=== PATIENT | female | born 1975 | race American Indian/Alaskan Native ===

== ENCOUNTER 2020-05-12 04:55 | Emergency (ER) | payer BC ==
[2020-05-12 05:13] VITALS: BP 128/84
[2020-05-12] MEDS ORDERED: CYCLOBENZAPRINE 10 MG TAB PO ONE (06:26)
[2020-05-12] MEDS ORDERED: KETOROLAC 60 MG/2 ML INJ IM ONE (06:26)
--- NOTE | 2020-05-12 07:33 | Emergency Department Report ---
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 reports no saddle paresthesia no loss of bowel or bladder no no direct trauma no urinary symptoms MD Complaint: back pain -: Gradual Similar Symptoms Previously: No Place: home Radiation: none Severity: mild Quality: dull, aching Consistency: constant Improves With: none Worsens With: none Associated Symptoms: denies: chest pain, numbness, difficulty walking, cough, difficulty urinating, incontinence, fever/chills, constipation, headaches, abdominal pain, loss of appetite, nausea/vomiting, rash, seizure, shortness of breath, syncope - Related Data Previous Rx's Medication Instructions Recorded Last Taken Type Ketorolac [Toradol] 10 mg PO Q6H PRN #20 tablet 05/12/20 Unknown Rx methOCARBAMOL [Robaxin TAB] 500 mg PO Q6H #30 tablet 05/12/20 Unknown Rx Allergies Allergy/AdvReac Type Severity Reaction Status Date / Time codeine Allergy Hives Verified 05/12/20 05:01 ED Review of Systems ROS: Stated complaint: BACK PAIN Other details as noted in HPI Comment: All other systems reviewed and negative ED Past Medical Hx - Past Medical History Previous Medical History?: No - Surgical History Past Surgical History?: No - Medications Home Medications: Home Medications Medication Instructions Recorded Confirmed Last Taken Type Ketorolac [Toradol] 10 mg PO Q6H PRN #20 tablet 05/12/20 Unknown Rx methOCARBAMOL [Robaxin TAB] 500 mg PO Q6H #30 tablet 05/12/20 Unknown Rx ED Physical Exam - General Limitations: No Limitations General appearance: alert, in no apparent distress - Head Head exam: Present: atraumatic, normocephalic - Eye Eye exam: Present: normal appearance - ENT ENT exam: Present: mucous membranes moist - Neck Neck exam: Present: normal inspection - Respiratory Respiratory exam: Present: normal lung sounds bilaterally. Absent: respiratory distress - Cardiovascular Cardiovascular Exam: Present: regular rate, normal rhythm. Absent: systolic murmur, diastolic murmur, rubs, gallop - GI/Abdominal GI/Abdominal exam: Present: soft, normal bowel sounds - Extremities Exam Extremities exam: Present: normal inspection - Back Exam Back exam: Present: normal inspection, tenderness, muscle spasm. Absent: CVA tenderness (R), CVA tenderness (L), paraspinal tenderness, vertebral tenderness - Neurological Exam Neurological exam: Present: alert, oriented X3, CN II-XII intact, normal gait - Psychiatric Psychiatric exam: Present: normal affect, normal mood. Absent: flat affect, manic, homicidal ideation - Skin Skin exam: Present: warm, dry, intact, normal color. Absent: rash, cyanosis, diaphoretic, petechiae, pallor, abrasion ED Course Vital Signs 05/12/20 05/12/20 05:06 06:37 Temperature 97.7 F Pulse Rate 55 L Respiratory 18 18 Rate Blood Pressure 128/84 O2 Sat by Pulse 100 Oximetry ED Medical Decision Making - Medical Decision Making Pt presents the emergency department complaining of back pain most consistent with back spasms lumbar and lumbago back Pain Most Consistent with Strain/Contusion. Differential Diagnosis Includes Lumbar Go Versus Mus culoskeletal Spasm, Strain Versus Sciatica. No Back Pain Red Flags on History or Physical. Presentation Not Consistent with Malignancy, Fracture, Cauda Equina, Abdominal Aortic Aneurysm, Viscus Perforation, Pulmonary Embolism, Renal Colic, Pyelonephritis. Patient reports no B symptoms, trauma trauma, incontinence, saddle anesthesia, distal weakness, urinary symptoms and is a febrile. Ms. Cunningham was treated with a Toradol shot with Flexeril and reports near complete resolution of her back pain Critical care attestation.: If time is entered above; I have spent that time in minutes in the direct care of this critically ill patient, excluding procedure time. ED Disposition Clinical Impression: Lumbago Disposition: - TO HOME OR SELFCARE Is pt being admited?: No Does the pt Need Aspirin: No Condition: Stable Instructions: Acute Back Pain, Adult Prescriptions: methOCARBAMOL [Robaxin TAB] 500 mg PO Q6H #30 tablet Ketorolac [Toradol] 10 mg PO Q6H PRN #20 tablet PRN Reason: Pain Referrals: [facility] [Provider Group] - 3-5 Days PRIMARY CARE, [Primary Care Provider] - 3-5 Days
== END 2020-05-12 07:27 | disposition home or self-care (01) ==
LOC: ED 04:55
DX: M54.5 Low back pain (principal); Z79.899 Other long term (current) drug therapy; Z88.8 Allergy status to other drugs, medicaments and biological substances
CPT/HCPCS: 96372; 99282; J1885

== ENCOUNTER 2020-07-29 17:48 | Emergency (ER) | payer BC ==
[2020-07-29 18:57] VITALS: BP 133/93
--- NOTE | 2020-07-29 19:04 | Emergency Department Report ---
ED General Adult HPI - General Chief complaint: Sore Throat Stated complaint: SORE THROAT/CHILLS Time Seen by Provider: 07/29/20 18:54 Source: patient Mode of arrival: Ambulatory Limitations: No Limitations - History of Present Illness Initial comments: 45 y/o female pt presents to ED w/ complaints of sore throat for two days. No known sick contacts. No steroid/antibiotic use. No recent travel. Denies fever, headache, cough, vomiting, neck stiffness, rash, congestion, shortness of breath. Denies all other complaints at this time. - Related Data Previous Rx's Medication Instructions Recorded Last Taken Type Ketorolac [Toradol] 10 mg PO Q6H PRN #20 tablet 05/12/20 Unknown Rx methOCARBAMOL [Robaxin TAB] 500 mg PO Q6H #30 tablet 05/12/20 Unknown Rx Nystas/Diphen/Xyl Visc/Mylanta 30 ml MM Q4H PRN #1 bottle 07/29/20 Unknown Rx [Magic Mouthwash] Penicillin Vk [Veetids TAB] 500 mg PO BID 10 Days tablet 07/29/20 Unknown Rx Allergies Allergy/AdvReac Type Severity Reaction Status Date / Time codeine Allergy Hives Verified 05/12/20 05:01 ED Review of Systems ROS: Stated complaint: SORE THROAT/CHILLS Other details as noted in HPI Other: GENERAL: Negative for fever. ENT: Positive for sore throat. CARDIOVASCULAR: Negative for chest pain. PULMONARY: Negative for shortness of breath. GASTROINTESTINAL: Negative for abdominal pain. MUSCULOSKELETAL: Negative for back pain. NEUROLOGICAL: Negative for headache. INTEGUMENTARY: Negative for rash. ED Past Medical Hx - Past Medical History Previous Medical History?: No - Surgical History Past Surgical History?: Yes Additional Surgical History: Tubaligation - Social History Smoking Status: Never Smoker Substance Use Type: Alcohol - Medications Home Medications: Home Medications Medication Instructions Recorded Confirmed Last Taken Type Ketorolac [Toradol] 10 mg PO Q6H PRN #20 tablet 05/12/20 Unknown Rx methOCARBAMOL [Robaxin TAB] 500 mg PO Q6H #30 tablet 05/12/20 Unknown Rx Nystas/Diphen/Xyl Visc/Mylanta 30 ml MM Q4H PRN #1 bottle 07/29/20 Unknown Rx [Magic Mouthwash] Penicillin Vk [Veetids TAB] 500 mg PO BID 10 Days tablet 07/29/20 Unknown Rx ED Physical Exam - General Limitations: No Limitations - Other Other exam information: General: Awake, appropriately interactive, no acute distress. ENT: There is pharyngeal erythema with exudate noted to the right tonsil. Uvula is midline and nonedematous. No trismus. No hoarseness. No trismus. Handling secretions without difficulty. Normal otoscopic exam. Neck: Supple. Full range of motion intact. Cardiovascular: Regular rate and rhythm. Normal peripheral perfusion. Pulmonary: Clear to auscultation bilaterally. No respiratory distress. Patient is speaking normally without use of accessory muscles. Skin: No apparent rashes or lesions. Neurological: No facial asymmetry. Speech is clear. Follows commands. Patient is alert and oriented. Musculoskeletal: Moves all four extremities spontaneously with normal range of motion. Psych: Cooperative. Appropriate mood and affect. ED Course Vital Signs 07/29/20 18:55 Temperature 99.9 F H Pulse Rate 83 Respiratory 20 Rate Blood Pressure 133/93 O2 Sat by Pulse 98 Oximetry ED Medical Decision Making - Medical Decision Making Differential diagnosis including but not limited to: strep pharyngitis, viral pharyngitis, peritonsillar abscess, epiglottitis, Edgar's angina, mononucleosis, allergic rhinitis, otitis media On re-evaluation, patient remains stable. Strep test is positive. No clinical evidence to suggest airway obstruction or systemic illness. Patient will be treated with Penicillin and Magic Mouthwash for symptomatic relief. Patient instructed to follow-up with primary care provider within the week. Patient expressed understanding and is agreeable to plan of care. Disease transmission precautions discussed. Strict return precautions provided. Repeat exam is unremarkable and benign. History, exam, diagnostic testing, and current condition do not suggest worrisome pathology to warrant further testing, continued ED treatment, admission, or surgical evaluation at this point. Given the low probability of a significant medical illness, it would be more likely to result in harm than benefit to perform further testing at this stage. Discussed findings, presumptive diagnosis, need for follow-up and specific signs/symptoms that should prompt immediate return to the emergency department. Instructions were explained in detail to the patient in addition to giving written discharge information. Patient expressed understanding and was given the opportunity to ask questions, all of which were satisfactorily answered prior to discharge home. Critical care attestation.: If time is entered above; I have spent that time in minutes in the direct care of this critically ill patient, excluding procedure time. ED Disposition Clinical Impression: Strep pharyngitis Disposition: DC-01 TO HOME OR SELFCARE Is pt being admited?: No Does the pt Need Aspirin: No Condition: Stable Instructions: Strep Throat, Adult Additional Instructions: Take Penicillin as directed. Use Magic Mouthwash as needed. Take Tylenol every 4 hours and Motrin every 8 hours as needed for pain. Salt water gargles as needed. Cepacol lozenges as needed. Rest. Drink plenty fluids. Wash hands frequently to prevent disease transmission. Do not share food or drinks with others. Follow-up with primary care provider this week. Call Friday to schedule an appointment. Return to the emergency department immediately for new or worsening symptoms. Prescriptions: Nystas/Diphen/Xyl Visc/Mylanta [Magic Mouthwash] 30 ml MM Q4H PRN #1 bottle PRN Reason: Sore Throat Penicillin Vk [Veetids TAB] 500 mg PO BID 10 Days tablet Referrals: LENKA MARQUEZ MD [Staff Physician] - 3-5 Days Time of Disposition: 20:11
== END 2020-07-29 20:45 | disposition home or self-care (01) ==
LOC: ED 17:48
DX: J02.0 Streptococcal pharyngitis (principal); Z98.51 Tubal ligation status; Z79.899 Other long term (current) drug therapy; Z88.8 Allergy status to other drugs, medicaments and biological substances
CPT/HCPCS: 87430

== ENCOUNTER 2021-03-12 02:00 | Emergency (ER) | payer SELFPAY ==
[2021-03-12 02:07] VITALS: BP 133/89
[2021-03-12] MEDS ORDERED: ONDANSETRON 4 MG/2 ML INJ IV ONE (02:23)
[2021-03-12] MEDS ORDERED: KETOROLAC 30 MG/1 ML INJ IV ONE (02:23)
[2021-03-12] MEDS ORDERED: SODIUM CHLORIDE 0.9% 1000 ML 1,000 ML IV ONE (02:23)
[2021-03-12 02:51] LABS: Basophils # (Auto) 0.1 K/mm3 (0.0-0.1); Basophils % (Auto) 1.1 % (0.0-1.8); Eosinophils # (Auto) 0.2 K/mm3 (0.0-0.4); Eosinophils % (Auto) 3.3 % (0.0-4.3); Hematocrit 39.2 % (30.3-42.9); Hemoglobin 12.4 gm/dl (10.1-14.3); Lymphocytes # (Auto) 2.5 K/mm3 (1.2-5.4); Lymphocytes % (Auto) 38.5 % (13.4-35.0); Mean Corpuscular HGB Conc 32 % (30-34); Mean Corpuscular Volume 86 fl (79-97); Monocytes # (Auto) 0.5 K/mm3 (0.0-0.8); Monocytes % (Auto) 7.2 % (0.0-7.3); Red Blood Count 4.59 M/mm3 (3.65-5.03); Red Cell Distribution Width 14.1 % (13.2-15.2)
[2021-03-12 03:09] LABS: Alanine Aminotransferase 15 units/L (7-56); Albumin 4.2 g/dL (3.9-5); BUN/Creatinine Ratio 15; Blood Urea Nitrogen 17 mg/dL (7-17); Calcium 9.4 mg/dL (8.4-10.2); Hemolysis Index 4
[2021-03-12] MEDS ORDERED: MORPHINE 4 MG/1 ML INJ IV ONE (03:32)
[2021-03-12 04:13] LABS: Platelet Count 126 K/mm3 (140-440)
--- NOTE | 2021-03-12 05:29 | Cat Scan Report ---
CT ABDOMEN AND PELVIS WITHOUT CONTRAST INDICATION / CLINICAL INFORMATION: Right flank pain - r/o kidney stones. TECHNIQUE: Axial CT images were obtained through the abdomen and pelvis without IV contrast. All CT scans at this location are performed using CT dose reduction for ALARA by means of automated exposure control. COMPARISON: None available. FINDINGS: LOWER CHEST: No significant abnormality LIVER: No significant abnormality GALLBLADDER/BILIARY TREE: No significant abnormality PANCREAS: No significant abnormality SPLEEN: No significant abnormality ADRENALS: No significant abnormality KIDNEYS / URETER: No renal or ureteral calculus identified. No hydronephrosis. URINARY BLADDER: Bladder is partially decompressed, though grossly unremarkable. REPRODUCTIVE ORGANS: No significant abnormality STOMACH / BOWEL: There is submucosal fat deposition within the terminal ileum and ascending colon. Th is is also present within the sigmoid colon. This may reflect sequela of chronic inflammatory bowel d isease. No acute inflammation is identified. There is no evidence of bowel obstruction. Normal append ix. LYMPH NODES: No significant adenopathy. VASCULATURE: Mild atherosclerotic calcification without acute abnormality. OTHER: No free air, free fluid, or focal fluid collection is identified. SKELETAL SYSTEM: No acute osseous findings. IMPRESSION: 1. No acute abnormality. No urolithiasis or hydronephrosis. 2. Submucosal fat deposition within the terminal ileum and ascending and sigmoid colon. Findings are nonspecific though may reflect sequela of chronic inflammatory bowel disease. No evidence of acute deacon wel inflammation or obstruction. Signer Name: Jase Anders MD Signed: 03/12/2021 5:25 AM Workstation Name: [id number]
--- NOTE | 2021-03-12 05:34 | Emergency Department Report ---
ED Abdominal Pain HPI - General Chief Complaint: Back Pain/Injury Stated Complaint: SIDE PAIN Source: patient Mode of arrival: Ambulatory Limitations: No Limitations - History of Present Illness Initial Comments: Patient is a 45-year-old -[place] female with no past medical history who presents to the ED with complaint of acute onset persistent severe right flank pain that radiates to the right lower back with nausea for the last 2 days. Patient states that the pain has been intermittent, sharp and stabbing. Patient states that she was unable to sleep because of worsening pain. Patient denies vaginal bleeding, hematuria, dysuria, urinary frequency and urgency, diarrhea, vomiting, chest pain or shortness of breath, traumatic injury, heavy lifting, numbness and tingling or weakness of lower extremities bilaterally. MD Complaint: flank pain (Right flank pain radiating to lower back), other (Nausea) -: Sudden, days(s) (2) Location: R flank Radiation: back (Low back) Migration to: no migration Severity: severe Severity scale (0 -10): 10 Quality: stabbing, sharp Consistency: intermittent Improves With: nothing Worsens With: movement Associated Symptoms: denies other symptoms, nausea, anorexia. denies: vomiting, diarrhea, fever, chills, constipation, dysuria, hematemesis, hematochezia, melena, syncope - Related Data LMP Date: 02/19/21 Previous Rx's Medication Instructions Recorded Last Taken Type Ketorolac [Toradol] 10 mg PO Q6H PRN #20 tablet 05/12/20 Unknown Rx methOCARBAMOL [Robaxin TAB] 500 mg PO Q6H #30 tablet 05/12/20 Unknown Rx Nystas/Diphen/Xyl Visc/Mylanta 30 ml MM Q4H PRN #1 bottle 07/29/20 Unknown Rx [Magic Mouthwash] Penicillin Vk [Veetids TAB] 500 mg PO BID 10 Days tablet 07/29/20 Unknown Rx Baclofen 20 mg PO Q12H PRN #24 tablet 03/12/21 Unknown Rx Ibuprofen [Motrin] 800 mg PO Q8HR PRN #30 tablet 03/12/21 Unknown Rx traMADoL [Ultram] 50 mg PO Q6HR PRN #12 tablet 03/12/21 Unknown Rx Allergies Allergy/AdvReac Type Severity Reaction Status Date / Time codeine Allergy Hives Verified 03/12/21 02:07 ED Review of Systems ROS: Stated complaint: SIDE PAIN Other details as noted in HPI Constitutional: denies: chills, fever Eyes: denies: eye pain, eye discharge, vision change ENT: denies: ear pain, throat pain Respiratory: denies: cough, shortness of breath, wheezing Cardiovascular: denies: chest pain, palpitations Endocrine: no symptoms reported Gastrointestinal: abdominal pain (Right flank pain), nausea. denies: vomiting, diarrhea, hematochezia Genitourinary: denies: urgency, dysuria, discharge Musculoskeletal: back pain (Muscle spasm of low back). denies: joint swelling, arthralgia Skin: denies: rash, lesions Neurological: denies: headache, weakness, paresthesias Psychiatric: denies: anxiety, depression Hematological/Lymphatic: denies: easy bleeding, easy bruising ED Past Medical Hx - Past Medical History Previous Medical History?: No - Surgical History Additional Surgical History: Tubaligation - Social History Smoking Status: Never Smoker Substance Use Type: Alcohol - Medications Home Medications: Home Medications Medication Instructions Recorded Confirmed Last Taken Type Ketorolac [Toradol] 10 mg PO Q6H PRN #20 tablet 05/12/20 Unknown Rx methOCARBAMOL [Robaxin TAB] 500 mg PO Q6H #30 tablet 05/12/20 Unknown Rx Nystas/Diphen/Xyl Visc/Mylanta 30 ml MM Q4H PRN #1 bottle 07/29/20 Unknown Rx [Magic Mouthwash] Penicillin Vk [Veetids TAB] 500 mg PO BID 10 Days tablet 07/29/20 Unknown Rx Baclofen 20 mg PO Q12H PRN #24 tablet 03/12/21 Unknown Rx Ibuprofen [Motrin] 800 mg PO Q8HR PRN #30 tablet 03/12/21 Unknown Rx traMADoL [Ultram] 50 mg PO Q6HR PRN #12 tablet 03/12/21 Unknown Rx ED Physical Exam - General Limitations: No Limitations General appearance: alert, in no apparent distress - Head Head exam: Present: atraumatic, normocephalic, normal inspection - Eye Eye exam: Present: normal appearance, PERRL, EOMI Pupils: Present: normal accommodation - ENT ENT exam: Present: normal exam, normal orophraynx, mucous membranes moist, TM's normal bilaterally, normal external ear exam - Neck Neck exam: Present: normal inspection, full ROM. Absent: tenderness - Respiratory Respiratory exam: Present: normal lung sounds bilaterally. Absent: respiratory distress, wheezes, rales, rhonchi, chest wall tenderness, accessory muscle use, decreased breath sounds - Cardiovascular Cardiovascular Exam: Present: regular rate, normal rhythm, normal heart sounds. Absent: systolic murmur, diastolic murmur, rubs, gallop - GI/Abdominal GI/Abdominal exam: Present: soft, normal bowel sounds. Absent: tenderness, guarding, rebound, hyperactive bowel sounds, hypoactive bowel sounds, org anomegaly - Extremities Exam Extremities exam: Present: normal inspection, full ROM, normal capillary refill - Back Exam Back exam: Present: normal inspection, full ROM, tenderness, CVA tenderness (R) (Palpable right flank tenderness, right CVA tenderness and palpable right-sided lumbosacral paraspinal musculoskeletal tenderness), muscle spasm, paraspinal tenderness. Absent: CVA tenderness (L), vertebral tenderness - Neurological Exam Neurological exam: Present: alert, oriented X3, CN II-XII intact, normal gait, reflexes normal - Psychiatric Psychiatric exam: Present: normal affect, normal mood - Skin Skin exam: Present: warm, dry, intact, normal color. Absent: rash ED Course Vital Signs 03/12/21 02:04 Temperature 97.6 F Pulse Rate 56 L Respiratory 17 Rate Blood Pressure 133/89 [Right] O2 Sat by Pulse 100 Oximetry ED Medical Decision Making - Lab Data Result diagrams: 03/12/21 02:37 03/12/21 02:37 - Radiology Data Radiology results: report reviewed, image reviewed [address] [address] Cat Scan Report Signed Patient: RAFAEL LONG MR#: [id number] : 1975 Acct:[id number] Age/Sex: 45 / F ADM Date: 03/12/21 Loc: ED Attending Dr: Ordering Physician: SINGH DIGGS Date of Service: 03/12/21 Procedure(s): CT abdomen pelvis wo con Accession Number(s): [id number] cc: SINGH DIGGS CT ABDOMEN AND PELVIS WITHOUT CONTRAST INDICATION / CLINICAL INFORMATION: Right flank pain - r/o kidney stones. TECHNIQUE: Axial CT images were obtained through the abdomen and pelvis without IV contrast. All CT scans at this location are performed using CT dose reduction for ALARA by means of automated exposure control. COMPARISON: None available. FINDINGS: LOWER CHEST: No significant abnormality LIVER: No significant abnormality GALLBLADDER/BILIARY TREE: No significant abnormality PANCREAS: No significant abnormality SPLEEN: No significant abnormality ADRENALS: No significant abnormality KIDNEYS / URETER: No renal or ureteral calculus identified. No hydronephrosis. URINARY BLADDER: Bladder is partially decompressed, though grossly unremarkable. REPRODUCTIVE ORGANS: No significant abnormality STOMACH / BOWEL: There is submucosal fat deposition within the terminal ileum and ascending colon. This is also present within the sigmoid colon. This may reflect sequela of chronic inflammatory bowel disease. No acute inflammation is identified. There is no evidence of bowel obstruction. Normal appendix. LYMPH NODES: No significant adenopathy. VASCULATURE: Mild atherosclerotic calcification without acute abnormality. OTHER: No free air, free fluid, or focal fluid collection is identified. SKELETAL SYSTEM: No acute osseous findings. IMPRESSION: 1. No acute abnormality. No urolithiasis or hydronephrosis. 2. Submucosal fat deposition within the terminal ileum and ascending and sigmoid colon. Findings are nonspecific though may reflect sequela of chronic inflammatory bowel disease. No evidence of acute bowel inflammation or obstruction. Signer Name: Omar Mantilla MD Signed: 03/12/2021 5:25 AM Workstation Name: [id number] Transcribed By: SIRIA Dictated By: OMAR MANTILLA MD Electronically Authenticated By: OMAR AMNTILLA MD Signed Date/Time: 03/12/21524 DD/ 9 TD/TT: - Medical Decision Making This is a 45-year-old -[place] female with no past medical history who presents to the ED with complaint of acute onset persistent severe right flank pain that radiates to the right lower back with nausea for the last 2 days. Patient states that the pain has been intermittent, sharp and stabbing. Patient states that she was unable to sleep because of worsening pain. In the ED, patient is alert and oriented x3 and is not in any distress but appears to be in pain. Patient was treated for pain in the ED and also given normal saline 1 L IV bolus x1 as well as given also antiemetics. Lab test results were reviewed and are all nonactionable. Abdomen pelvis CT scan without contrast showed no acute abnormalities. On reevaluation, patient's pain is well controlled with medication. Patient symptoms are likely due to muscle spasm of her lower back. Patient will discharge home on pain medications and muscle relaxants and advised to follow-up with her primary care physician in 5 to 7 days for reevaluation or return to the ED immediately if symptoms get worse. - Differential Diagnosis Kidney stone; UTI; pyelonephritis; muscle spasm; lumbago Critical care attestation.: If time is entered above; I have spent that time in minutes in the direct care of this critically ill patient, excluding procedure time. ED Disposition Clinical Impression: Acute abdominal pain in right flank, Spasm of muscle of lower back Disposition: HOME / SELF CARE / HOMELESS Is pt being admited?: No Does the pt Need Aspirin: No Condition: Stable Instructions: Abdominal Pain, Adult, [id number], Flank Pain, Adult, [id number] Additional Instructions: All lab test results were reviewed and are all nonactionable. Abdomen pelvis CT scan without contrast showed no acute abnormalities. Therefore your symptoms are likely muscle spasm of your back or you may have passed a kidney stone prior to arrival in the ED. Therefore take pain medications with food, drink plenty of fluids and follow-up with your primary care physician in 5 to 7 days for reevaluation. Return to the ED immediately if symptoms get worse. Prescriptions: Baclofen 20 mg PO Q12H PRN #24 tablet PRN Reason: Muscle Spasm Ibuprofen [Motrin] 800 mg PO Q8HR PRN #30 tablet PRN Reason: Pain , Severe (7-10) traMADoL [Ultram] 50 mg PO Q6HR PRN #12 tablet PRN Reason: Pain Referrals: [facility] [Provider Group] - 7-10 days Forms: Work/School Release Form(ED) Time of Disposition: 05:33 Print Language: KAZAKH
[2021-03-12 06:22] LABS: Bilirubin,Urine NEG (Negative); Blood,Urine SM (Negative); Color,Urine Yellow (Yellow); Mucus,Urine FEW /HPF; Protein,Urine <15 mg/dL mg/dL (Negative); Urobilinogen,Urine < 2.0 mg/dL (<2.0)
== END 2021-03-12 07:27 | disposition home or self-care (01) ==
LOC: ED 02:00
DX: R10.9 Unspecified abdominal pain (principal); M62.830 Muscle spasm of back
CPT/HCPCS: 36415; 74176; 80053; 81001; 84703; 85025; 96361; 96374; 96375; 99284; J1885; J2270; J2405; J7030; Q0162

== ENCOUNTER 2021-03-15 04:46 | Emergency (ER) | payer SELFPAY ==
--- NOTE | 2021-03-15 06:57 | Emergency Department Report ---
HPI <PREET MATHEWS - Last Filed: 03/15/21 15:33> - HPI HPI: 45-year-old -N[place]alese female presents to the emergency department with right-sided back pain that she says is 10 out of 10 in intensity and says is "I think it is my kidney." The patient was seen here a few days ago on 03/12 and had some unremarkable blood work and a CT of the abdomen and pelvis that did not show any acute process or etiology of the patient's pain. It appears that the patient did have a urinalysis that showed some hematuria but no sign of urinary tract infection. She was discharged home with a prescription for ibuprofen, baclofen and tramadol. The patient says that she has been taking the medication but it has not been working, but it does not appear that the patient actually filled the tramadol. She does have the ibuprofen and baclofen at bedside. No past medical history. She has a history of tubal ligation. <ALEXIA ESPINOSA S - Last Filed: 03/17/21 06:16> - General Chief Complaint: Back Pain/Injury Time Seen by Provider: 03/15/21 06:38 ED Past Medical Hx <PREET MATHEWS - Last Filed: 03/15/21 15:33> - Past Medical History Previous Medical History?: No - Surgical History Past Surgical History?: Yes Additional Surgical History: Tubaligation - Social History Smoking Status: Never Smoker Substance Use Type: Alcohol <ALEXIA ESPINOSA - Last Filed: 03/17/21 06:16> - Medications Home Medications: Home Medications Medication Instructions Recorded Confirmed Last Taken Type Ketorolac [Toradol] 10 mg PO Q6H PRN #20 tablet 05/12/20 Unknown Rx methOCARBAMOL [Robaxin TAB] 500 mg PO Q6H #30 tablet 05/12/20 Unknown Rx Nystas/Diphen/Xyl Visc/Mylanta 30 ml MM Q4H PRN #1 bottle 07/29/20 Unknown Rx [Magic Mouthwash] Penicillin Vk [Veetids TAB] 500 mg PO BID 10 Days tablet 07/29/20 Unknown Rx Baclofen 20 mg PO Q12H PRN #24 tablet 03/12/21 Unknown Rx Ibuprofen [Motrin] 800 mg PO Q8HR PRN #30 tablet 03/12/21 Unknown Rx traMADoL [Ultram] 50 mg PO Q6HR PRN #12 tablet 03/12/21 Unknown Rx Ondansetron [Zofran Odt] 4 mg PO Q8HR PRN #15 tab.rapdis 03/15/21 Unknown Rx ED Review of Systems ROS: Stated complaint: BACK PAIN Other details as noted in HPI <PREET MATHEWS - Last Filed: 03/15/21 15:33> ROS: Stated complaint: BACK PAIN Other details as noted in HPI Comment: All other systems reviewed and negative Constitutional: denies: chills, fever Eyes: denies: eye pain, vision change ENT: denies: ear pain, throat pain Respiratory: denies: cough, shortness of breath Cardiovascular: denies: chest pain, palpitations Gastrointestinal: denies: abdominal pain, vomiting Genitourinary: denies: dysuria, discharge Musculoskeletal: back pain. denies: arthralgia Skin: denies: rash, lesions Neurological: denies: headache, weakness <ALEXIA ESPINOSA - Last Filed: 03/17/21 06:16> Physical Exam - Physical Exam Vital Signs: Vital Signs 03/15/21 03/15/21 03/15/21 04:48 06:29 07:54 Temperature 97.3 F L Pulse Rate 70 Respiratory 18 Rate Blood Pressure 147/93 Blood Pressure [Left] O2 Sat by Pulse 100 97 100 Oximetry 03/15/21 03/15/21 03/15/21 07:58 07:59 08:00 Temperature Pulse Rate 68 68 Respiratory 18 18 Rate Blood Pressure 167/88 151/84 Blood Pressure 167/88 [Left] O2 Sat by Pulse 100 100 97 Oximetry 03/15/21 03/15/21 03/15/21 09:00 10:00 10:45 Temperature 98.6 F Pulse Rate 72 Respiratory 16 Rate Blood Pressure 155/78 131/75 Blood Pressure 126/61 [Left] O2 Sat by Pulse 100 98 100 Oximetry 03/15/21 13:23 Temperature 97.7 F Pulse Rate 62 Respiratory 16 Rate Blood Pressure Blood Pressure 166/87 [Left] O2 Sat by Pulse 100 Oximetry <PREET MATHEWS - Last Filed: 03/15/21 15:33> - Physical Exam Vital Signs: Vital Signs 03/15/21 03/15/21 04:48 06:29 Temperature 97.3 F L Pulse Rate 70 Respiratory 18 Rate Blood Pressure 147/93 O2 Sat by Pulse 100 97 Oximetry Physical Exam: GENERAL: The patient is well-developed well-nourished. HENT: Normocephalic. Atraumatic. Patient has moist mucous membranes. EYES: Extraocular motions are intact. NECK: Supple. Trachea is midline. CHEST/LUNGS: Clear to auscultation. There is no respiratory distress noted. HEART/CARDIOVASCULAR: Regular. There is no tachycardia. There is no murmur. ABDOMEN: Abdomen is soft, nontender. Patient has normal bowel sounds. SKIN: Skin is warm and dry. NEURO: The patient is awake, alert, and oriented. The patient is cooperative. The patient has no focal neurologic deficits. Normal speech. MUSCULOSKELETAL: There is no tenderness or deformity. BACK: No midline thoracic or lumbar tenderness to palpation. Unable to reproduce right paraspinal TTP. <ALEXIA ESPINOSA S - Last Filed: 03/17/21 06:16> ED Course Vital Signs 03/15/21 03/15/21 03/15/21 04:48 06:29 07:54 Temperature 97.3 F L Pulse Rate 70 Respiratory 18 Rate Blood Pressure 147/93 Blood Pressure [Left] O2 Sat by Pulse 100 97 100 Oximetry 03/15/21 03/15/21 03/15/21 07:58 07:59 08:00 Temperature Pulse Rate 68 68 Respiratory 18 18 Rate Blood Pressure 167/88 151/84 Blood Pressure 167/88 [Left] O2 Sat by Pulse 100 100 97 Oximetry 03/15/21 03/15/21 03/15/21 09:00 10:00 10:45 Temperature 98.6 F Pulse Rate 72 Respiratory 16 Rate Blood Pressure 155/78 131/75 Blood Pressure 126/61 [Left] O2 Sat by Pulse 100 98 100 Oximetry 03/15/21 13:23 Temperature 97.7 F Pulse Rate 62 Respiratory 16 Rate Blood Pressure Blood Pressure 166/87 [Left] O2 Sat by Pulse 100 Oximetry - Reevaluation(s) Reevaluation #2: 03/15/21 15:31 pt denies n/v and pain is controlled <PREET MATHEWS - Last Filed: 03/15/21 15:33> Vital Signs 03/15/21 03/15/21 04:48 06:29 Temperature 97.3 F L Pulse Rate 70 Respiratory 18 Rate Blood Pressure 147/93 O2 Sat by Pulse 100 97 Oximetry - Reevaluation(s) Reevaluation #1: 03/15/21 12:59 The patient's work-up has thus far been unremarkable including CBC, metabolic panel, lipase, renal ultrasound and abdominal x-ray. She was given some IV fluid resuscitation, antiemetic, 2 different doses of analgesia over 2 hours, and a dose of Toradol. Initially the patient was starting to feel improved. However, when she got up to leave for discharge the patient immediately began vomiting and felt lightheaded/dizzy. She was brought back to her bed in room #2 2 and given a Zofran ODT. At first the patient started to appear improved get again and we tried an oral challenge, but the patient has now just started vomiting again. She still complains of this right-sided back/flank pain. The patient's previous CT scan was noncontrast. An IV will be placed again then she will receive IV Reglan, IV fluid resuscitation, and we will do a CT scan of the abdomen pelvis with IV contrast this time. <ALEXIA ESPINOSA S - Last Filed: 03/17/21 06:16> ED Medical Decision Making - Lab Data Result diagrams: 03/15/21 07:41 03/15/21 07:41 - Radiology Data Radiology results: report reviewed CT ABDOMEN AND PELVIS WITH CONTRAST INDICATION / CLINICAL INFORMATION: Abd pain, flank and back pain, right side [id number] 100ML. TECHNIQUE: Axial CT images were obtained through the abdomen and pelvis after IV contrast. All CT scans at this location are performed using CT dose reduction for ALARA by means of automated exposure control. COMPARISON: CT abdomen and pelvis 03/12/2021 FINDINGS: LOWER CHEST: No significant abnormality. LIVER: No significant abnormality. GALLBLADDER: No significant abnormality. PANCREAS: No significant abnormality. SPLEEN: No significant abnormality. ADRENALS: No significant abnormality. RIGHT KIDNEY / URETER: No significant abnormality. LEFT KIDNEY / URETER: No significant abnormality. STOMACH / SMALL BOWEL: No significant abnormality. COLON: No significant abnormality. APPENDIX: No significant abnormality. PERITONEUM: No free fluid, free air or organized collection. LYMPH NODES: No significant adenopathy. AORTA / ARTERIES/ VEINS: No significant abnormality. URINARY BLADDER: No significant abnormality. REPRODUCTIVE ORGANS: 2.5 cm right Bartholin gland cyst. ADDITIONAL FINDINGS: None. SKELETAL SYSTEM: No significant abnormality. IMPRESSION: 1. No acute abnormality. No significant interval change compared with reference exam from 3 days prior. - Medical Decision Making Patient informed of her negative CAT scan results and plan for discharge. Encouraged to follow-up with PMD/ Referral and fill her prescriptions <PREET MATHEWS - Last Filed: 03/15/21 15:33> - Lab Data Result diagrams: 03/15/21 07:41 03/15/21 07:41 Lab Results 03/15/21 03/15/21 03/15/21 Range/Units 07:41 07:41 07:58 WBC 9.9 (4.5-11.0) K/mm3 RBC 4.87 (3.65-5.03) M/mm3 Hgb 13.1 (10.1-14.3) gm/dl Hct 40.9 (30.3-42.9) % MCV 84 (79-97) fl MCH 27 L (28-32) pg MCHC 32 (30-34) % RDW 14.0 (13.2-15.2) % Plt Count 127 L (140-440) K/mm3 Lymph % (Auto) 17.0 (13.4-35.0) % [place] % (Auto) 4.6 (0.0-7.3) % Eos % (Auto) 0.1 (0.0-4.3) % Baso % (Auto) 0.6 (0.0-1.8) % Lymph # (Auto) 1.7 (1.2-5.4) K/mm3 [place] # (Auto) 0.5 (0.0-0.8) K/mm3 Eos # (Auto) 0.0 (0.0-0.4) K/mm3 Baso # (Auto) 0.1 (0.0-0.1) K/mm3 Seg Neutrophils % 77.7 H (40.0-70.0) % Seg Neutrophils # 7.7 (1.8-7.7) K/mm3 Sodium 138 (137-145) mmol/L Potassium 4.1 (3.6-5.0) mmol/L Chloride 100.9 (98-107) mmol/L Carbon Dioxide 20 L (22-30) mmol/L Anion Gap 21 mmol/L BUN 12 (7-17) mg/dL Creatinine 1.0 (0.6-1.2) mg/dL Estimated GFR > 60 ml/min BUN/Creatinine Ratio 12 % Glucose 111 H (65-100) mg/dL Calcium 9.8 (8.4-10.2) mg/dL Total Bilirubin 0.30 (0.1-1.2) mg/dL AST 16 (5-40) units/L ALT 14 (7-56) units/L Alkaline Phosphatase 83 (35-129) units/L Total Protein 7.6 (6.3-8.2) g/dL Albumin 4.8 (3.9-5) g/dL Albumin/Globulin Ratio 1.7 % Urine Color Straw (Yellow) Urine Turbidity Clear (Clear) Urine pH 7.0 (5.0-7.0) Ur Specific [place] 1.009 (1.003-1.030) Urine Protein <15 mg/dl (Negative) mg/dL Urine Glucose (UA) Neg (Negative) mg/dL Urine Ketones Neg (Negative) mg/dL Urine Blood Mod (Negative) Urine Nitrite Neg (Negative) Urine Bilirubin Neg (Negative) Urine Urobilinogen < 2.0 (<2.0) mg/dL Ur Leukocyte Esterase Neg (Negative) Urine WBC (Auto) 1.0 (0.0-6.0) /HPF Urine RBC (Auto) 11.0 (0.0-6.0) /HPF U Epithel Cells (Auto) 9.0 (0-13.0) /HPF - Radiology Data Radiology results: image reviewed interpreted by me: Chest x-ray does not show any acute process. There are no pleural effusions, obvious pneumonia and there is no pneumothorax. No widened mediastinum. Abdominal x-ray shows nonspecific nonobstructive bowel gas. No free air. ULTRASOUND RENAL INDICATION / CLINICAL INFORMATION: Renal/ureteral stone. COMPARISON: CT from 03/12/2021. FINDINGS: RIGHT KIDNEY: Size (in cm): 10.5 - Echogenicity: Normal. - Cortical Thickness: Normal. - Hydronephrosis: None. - Cyst or mass: No significant abnormality. - Stones: None seen. LEFT KIDNEY: Size (in cm): 10.3 - Echogenicity: Normal. - Cortical Thickness: Normal. - Hydronephrosis: None. - Cyst or mass: No significant abnormality. - Stones: None seen. URINARY BLADDER: No significant abnormality. FREE FLUID: None. ADDITIONAL FINDINGS: None. IMPRESSION: 1. No significant abnormality. - Medical Decision Making This patient presented with a return of right middle to lower paraspinal back pain that she described as "kidney pain." The patient had been here 3 days previous and had a full negative work-up including noncontrasted CT scan of the abdomen and pelvis. The patient was given some IV fluid resuscitation and 2 doses of analgesia, and a dose of an antiemetic. She had a chest x-ray that does not show any pneumonia, pleural effusions, pneumothorax, focal consolidation, widened mediastinum, or any other acute process. Abdominal x-ray shows nonspecific nonobstructive bowel gas, no free air. Labs once again have been mostly unremarkable including CBC, metabolic panel, and urinalysis. She had a renal ultrasound that did not show any acute process. Initially the p atient was starting to feel better upon reevaluation but upon getting up the patient suddenly became lightheaded and had nausea with vomiting. She was placed back in her room and given further IV fluid and an antiemetic. She still continued to complain of nausea, lightheadedness and this backslash flank pain. For this reason I repeated her CT scan, but this time with IV contrast, but it did not show any acute process or etiology of the patient's symptoms. She was reevaluated and followed by my colleague until she was feeling improved and then was discharged home accordingly. <ALEXIA ESPINOSA S - Last Filed: 03/17/21 06:16> Critical care attestation.: If time is entered above; I have spent that time in minutes in the direct care of this critically ill patient, excluding procedure time. <PREET MATHEWS - Last Filed: 03/15/21 15:33> Critical Care Time: No Critical care attestation.: If time is entered above; I have spent that time in minutes in the direct care of this critically ill patient, excluding procedure time. <ALEXIA ESPINOSA S - Last Filed: 03/17/21 06:16> ED Disposition <PREET MATHEWS - Last Filed: 03/15/21 15:33> Is pt being admited?: No Time of Disposition: 10:00 <ALEXIA ESPINOSA S - Last Filed: 03/17/21 06:16> Clinical Impression: Elevated blood pressure reading Right-sided back pain Qualifiers: Back pain location: back pain in unspecified location Chronicity: unspecified Qualified Code(s): M54.9 - Dorsalgia, unspecified Disposition: 01 HOME / SELF CARE / HOMELESS Condition: Stable Instructions: Acute Back Pain, Adult Additional Instructions: Please follow-up with a primary care physician in the next few days. I have given you a referral for a local primary care physician, Dr. Eric, and a primary care clinic, [facility]. You had some elevated blood pressure readings while in the emergency department today. This may be secondary to your pain. However, try to stay away from foods that are high in salt and caffeinated products. Keep a blood pressure log. Return to the emergency department with any worsening of your symptoms, new or concerning symptoms not addressed during this current emergency department visit, or with any acute distress. Prescriptions: Ondansetron [Zofran Odt] 4 mg PO Q8HR PRN #15 tab.rapdis PRN Reason: Nausea Referrals: PRIMARY CARE, [Primary Care Provider] - 3-5 Days LENKA ERIC MD [Staff Physician] - 3-5 Days [facility] [Provider Group] - 3-5 Days
[2021-03-15] MEDS ORDERED: MORPHINE 4 MG/1 ML INJ IV ONE ×2 (07:37→09:02)
[2021-03-15] MEDS ORDERED: SODIUM CHLORIDE 0.9% 1000 ML 1,000 ML IV ONE ×2 (07:37→13:07)
[2021-03-15] MEDS ORDERED: ONDANSETRON 4 MG/2 ML INJ IV ONE (07:37)
--- NOTE | 2021-03-15 07:39 | Ultrasound Report ---
ULTRASOUND RENAL INDICATION / CLINICAL INFORMATION: Renal/ureteral stone. COMPARISON: CT from 03/12/2021. FINDINGS: RIGHT KIDNEY: Size (in cm): 10.5 - Echogenicity: Normal. - Cortical Thickness: Normal. - Hydronephrosis: None. - Cyst or mass: No significant abnormality. - Stones: None seen. LEFT KIDNEY: Size (in cm): 10.3 - Echogenicity: Normal. - Cortical Thickness: Normal. - Hydronephrosis: None. - Cyst or mass: No significant abnormality. - Stones: None seen. URINARY BLADDER: No significant abnormality. FREE FLUID: None. ADDITIONAL FINDINGS: None. IMPRESSION: 1. No significant abnormality. Signer Name: Jase Anders MD Signed: 03/15/2021 7:35 AM Workstation Name: [id number]
[2021-03-15 08:17] LABS: Bilirubin,Urine NEG (Negative); Blood,Urine MOD (Negative); Color,Urine Straw (Yellow); Protein,Urine <15 mg/dL mg/dL (Negative); Urobilinogen,Urine < 2.0 mg/dL (<2.0)
[2021-03-15 08:24] LABS: Basophils # (Auto) 0.1 K/mm3 (0.0-0.1); Basophils % (Auto) 0.6 % (0.0-1.8); Eosinophils % (Auto) 0.1 % (0.0-4.3); Hematocrit 40.9 % (30.3-42.9); Hemoglobin 13.1 gm/dl (10.1-14.3); Lymphocytes # (Auto) 1.7 K/mm3 (1.2-5.4); Mean Corpuscular HGB Conc 32 % (30-34); Mean Corpuscular Volume 84 fl (79-97); Monocytes # (Auto) 0.5 K/mm3 (0.0-0.8); Monocytes % (Auto) 4.6 % (0.0-7.3); Red Blood Count 4.87 M/mm3 (3.65-5.03)
[2021-03-15 08:25] LABS: Platelet Count 127 K/mm3 (140-440)
[2021-03-15 08:36] LABS: Alanine Aminotransferase 14 units/L (7-56); Albumin 4.8 g/dL (3.9-5); BUN/Creatinine Ratio 12; Blood Urea Nitrogen 12 mg/dL (7-17); Calcium 9.8 mg/dL (8.4-10.2); Hemolysis Index 7
[2021-03-15] MEDS ORDERED: KETOROLAC 30 MG/1 ML INJ IV ONE (08:41)
--- NOTE | 2021-03-15 09:37 | XRay Report ---
Complete abdominal series with frontal chest 5 views INDICATION: Flank and back pain IMPRESSION: The lungs are grossly clear. Nonobstructive bowel gas pattern. No radiopaque calculi appr eciated. Signer Name: Franki López MD Signed: 03/15/2021 9:33 AM Workstation Name: [id number]
[2021-03-15] MEDS ORDERED: ONDANSETRON 4 MG ODT TAB PO ONE (11:01)
[2021-03-15] MEDS ORDERED: METOCLOPRAMIDE 10 MG/2 ML INJ IV ONE (12:57)
--- NOTE | 2021-03-15 15:12 | Cat Scan Report ---
CT ABDOMEN AND PELVIS WITH CONTRAST INDICATION / CLINICAL INFORMATION: Abd pain, flank and back pain, right side [id number] 100ML. TECHNIQUE: Axial CT images were obtained through the abdomen and pelvis after IV contrast. All CT sc ans at this location are performed using CT dose reduction for ALARA by means of automated exposure c ontrol. COMPARISON: CT abdomen and pelvis 03/12/2021 FINDINGS: LOWER CHEST: No significant abnormality. LIVER: No significant abnormality. GALLBLADDER: No significant abnormality. PANCREAS: No significant abnormality. SPLEEN: No significant abnormality. ADRENALS: No significant abnormality. RIGHT KIDNEY / URETER: No significant abnormality. LEFT KIDNEY / URETER: No significant abnormality. STOMACH / SMALL BOWEL: No significant abnormality. COLON: No significant abnormality. APPENDIX: No significant abnormality. PERITONEUM: No free fluid, free air or organized collection. LYMPH NODES: No significant adenopathy. AORTA / ARTERIES/ VEINS: No significant abnormality. URINARY BLADDER: No significant abnormality. REPRODUCTIVE ORGANS: 2.5 cm right Bartholin gland cyst. ADDITIONAL FINDINGS: None. SKELETAL SYSTEM: No significant abnormality. IMPRESSION: 1. No acute abnormality. No significant interval change compared with reference exam from 3 days leandro or. Signer Name: Donavan Pierre MD Signed: 03/15/2021 3:08 PM Workstation Name: [id number]
[2021-03-15 15:53] VITALS: BP 166/90
== END 2021-03-15 15:45 | disposition home or self-care (01) ==
LOC: ED 04:46
DX: M54.89 Other dorsalgia (principal); I10 Essential (primary) hypertension; R10.9 Unspecified abdominal pain
CPT/HCPCS: 36415; 74022; 74177; 76770; 80053; 81001; 85025; 96361; 96374; 96375; 96376; 99284; J1885; J2270; J2405; J2765; J7030; Q9967; J3490; Q0162

== ENCOUNTER 2021-09-27 11:16 | Emergency (ER) | payer BC | END 2021-09-27 12:30 | disposition left against medical advice (07) | LOC: ED 11:16 | DX: U07.1 COVID-19 (principal); Z53.21 Procedure and treatment not carried out due to patient leaving prior to being seen by health care provider ==